=== PATIENT | female | born 1980 | race African-American/Black ===

== ENCOUNTER 2021-06-09 08:00 | Emergency (ER) | payer SELFPAY ==
[2021-06-09] MEDS ORDERED: Xylocaine 1% w/ Epi 1:100K 10 ML VIAL ONE (08:28)
== END 2021-06-09 08:49 | disposition home or self-care (01) ==
LOC: ERS 08:00
DX: L02.31 Cutaneous abscess of buttock (principal)
CPT/HCPCS: 10060